=== PATIENT | female | born 1970 | race Caucasian/White ===

== ENCOUNTER 2021-01-29 09:36 | Outpatient (REF) | payer MEDICARE, SELFPAY ==
--- NOTE | ~2021-01-29 | XR_ITS ---
EXAMINATION: XR HAND WRIST, RIGHT XR HAND WRIST, LEFT CLINICAL INFORMATION: L40.50 - Arthropathic psoriasis, unspecified COMPARISON: None TECHNIQUE: Right hand and wrist are imaged in large [id number] for 3 views along with navicular view of the right wrist. There are a total of 4 views. Left hand and wrist are imaged in large [id number] for 3 views along with navicular view of the left wrist. There are a total of 4 views. FINDINGS: Right: Normal bony mineralization. No focal soft tissue swelling. No fracture, dislocation, destructive process. The ulnar variance is neutral. The pronator quadratus fat pad appears normal. There is a punctate corticated ossicle adjacent to tip ulnar styloid. The carpus shows no joint narrowing or erosive change or chondrocalcinosis. There is incidental small cyst distal navicular pole. The MCP and interphalangeal joints show no focal narrowing or erosive change. Left: Normal bony mineralization. No focal soft tissue swelling. No fracture, dislocation, destructive process. The ulnar variance is neutral. The pronator quadratus fat pad appears normal. The carpus shows no joint narrowing or erosive change or chondrocalcinosis. The MCP and interphalangeal joints show no focal narrowing or erosive change. XR/XR hand wrist RT IMPRESSION: No soft tissue swelling, joint narrowing, or erosive changes.
--- NOTE | ~2021-01-29 | XR_ITS ---
EXAMINATION: XR PELVIS CLINICAL INFORMATION: L40.50 - Arthropathic psoriasis, unspecified COMPARISON: None TECHNIQUE: AP view of the pelvis. FINDINGS: There are degenerative changes lower lumbar spine with disc narrowing and spurring at L4-L5 and likely at L5-S1. There is probable mild joint narrowing lower left SI joint. No ankylosis or erosive change. Scattered phleboliths are seen in the left and right pelvis. Bowel gas is unremarkable. There is some symmetric benign whiskering at the bilateral iliac wings. The hip joints show no narrowing or erosive change. The pubis is unremarkable. There is focal mineralization adjacent to superior aspect left hip greater trochanter and right ischial tuberosity which may be related to calcific tendinosis at both sites. XR/XR pelvis 1-2V IMPRESSION: 1. Degenerative changes lower lumbar spine. 2. Hip joints are unremarkable. 3. Probable calcific tendinosis at superior left greater trochanter and right ischial tuberosity.
--- NOTE | ~2021-01-29 | XR_ITS ---
EXAMINATION: XR HAND WRIST, RIGHT XR HAND WRIST, LEFT CLINICAL INFORMATION: L40.50 - Arthropathic psoriasis, unspecified COMPARISON: None TECHNIQUE: Right hand and wrist are imaged in large [id number] for 3 views along with navicular view of the right wrist. There are a total of 4 views. Left hand and wrist are imaged in large [id number]-dg-[id number] for 3 views along with navicular view of the left wrist. There are a total of 4 views. FINDINGS: Right: Normal bony mineralization. No focal soft tissue swelling. No fracture, dislocation, destructive process. The ulnar variance is neutral. The pronator quadratus fat pad appears normal. There is a punctate corticated ossicle adjacent to tip ulnar styloid. The carpus shows no joint narrowing or erosive change or chondrocalcinosis. There is incidental small cyst distal navicular pole. The MCP and interphalangeal joints show no focal narrowing or erosive change. Left: Normal bony mineralization. No focal soft tissue swelling. No fracture, dislocation, destructive process. The ulnar variance is neutral. The pronator quadratus fat pad appears normal. The carpus shows no joint narrowing or erosive change or chondrocalcinosis. The MCP and interphalangeal joints show no focal narrowing or erosive change. XR/XR hand wrist LT IMPRESSION: No soft tissue swelling, joint narrowing, or erosive changes.
[2021-01-29 11:39] LABS: MANUAL DIFF FLAG NO
[2021-01-29 11:55] LABS: Basophils Absolute Auto 0.1 X10*3/uL (0.0-0.2); Basophils Percent Auto 0.7 % (0-2); Eosinophils Absolute Auto 0.1 X10*3/uL (0.0-0.4); Eosinophils Percent Auto 1.5 % (0-4); Hematocrit 39.2 % (37-47); Hemoglobin 12.8 g/dl (12.0-16.0); Imm Gran Abs Auto 0.05 X10*3/uL (0.00-0.03); Imm Gran Pct Auto 0.6 % (0.0-0.4); Lymphocytes Absolute Auto 2.4 X10*3/uL (1.2-4.9); Lymphocytes Percent Auto 26.9 % (20-40); Mean Corpuscular HGB Conc 32.7 g/dl (31.0-35.0); Mean Corpuscular Hemoglobin 30.7 pg (27.0-33.0); Mean Platelet Volume 9.9 fL (9.4-12.3); Monocytes Absolute Auto 0.6 X10*3/uL (0.1-1.2); Monocytes Percent Auto 7.2 % (2-11); Neutrophils Absolute Auto 5.7 X10*3/uL (2.0-8.3); Neutrophils Percent Auto 63.1 % (45-73); Platelet Count 262 X10*3/uL (160-400); Red Blood Count 4.17 X10*6/uL (4.20-5.50); White Blood Count 8.9 X10*3/uL (4.8-10.8)
[2021-01-29 12:26] LABS: Alanine Aminotransferase 16 U/L (0-31); Alkaline Phosphatase 53 U/L (39-117); Anion Gap 13 (12-20); Aspartate Amino Transferase 18 U/L (5-31); Bilirubin Total 0.7 mg/dL (0.0-1.0); Blood Urea Nitrogen 12 mg/dL (9-16); Calcium 8.8 mg/dL (8.4-10.2); Carbon Dioxide 30 mmol/L (22-29); Chloride 104 mmol/L (96-108); Estimated Glomerular Filt Rate > 60; Glucose Random 94 mg/dL (60-115); Potassium 4.2 mmol/L (3.3-5.1); Rheumatoid Factor < 15.0 IU/mL (<15.0); Sodium 143 mmol/L (135-145); Total Protein 6.5 g/dL (6.5-8.0)
[2021-01-29 13:22] LABS: Erythrocyte Sedimentation Rate 19 MM/HR (0-20)
[2021-01-30 08:34] LABS: HBsAGNum1 0.17 S/CO (0.00-0.99); Hepatitis A Antibody IgM 0.07 Index (0-0.79); Hepatitis B Surface Antigen Negative (Negative); ~Hepatitis A Antibody IgM Nonreactive (Nonreactive)
[2021-01-30 08:59] LABS: HBS Num1 0.16 mIU/mL (0-7.99); Hepatitis B Core Antibody Nonreactive (Nonreactive); ~HepC Num1 0.07 S/CO (0.00-0.79); ~Hepatitis B Surface Antibody NONREACTIVE (Nonreactive); ~Hepatitis C Antibody Nonreactive (Nonreactive)
[2021-01-31 13:21] LABS: Cyclic Citrullinated Peptide <16 UNITS
[2021-01-31 18:11] LABS: TS Negative Control Passed; TS Panel A 0; TS Panel B 0; TS Positive Control Passed; TSpotTB Negative (SeeBelow)
== END 2021-01-29 09:37 | disposition home or self-care (01) ==
LOC: HO.LAB 09:36
PROVIDERS: PCP Internal Medicine; Visit Provider Student in an Organized Health Care Education/Training Program
DX: L40.50 Arthropathic psoriasis, unspecified (principal); Z79.899 Other long term (current) drug therapy
CPT/HCPCS: 36415; 72170; 73110; 73130; 80053; 85025; 85652; 86140; 86200; 86431; 86481; 86704; 86706; 86709; 86803; 87340

== ENCOUNTER → 2021-02-26 15:47 | Outpatient (BNVA) | payer MEDICARE, SELFPAY | PROVIDERS: PCP Internal Medicine; Visit Provider Student in an Organized Health Care Education/Training Program | DX: L40.50 Arthropathic psoriasis, unspecified (principal); M47.816 Spondylosis without myelopathy or radiculopathy, lumbar region | CPT/HCPCS: 99212 ==

== ENCOUNTER 2021-03-12 12:49 | Outpatient (REF) | payer MEDICARE, SELFPAY ==
--- NOTE | ~2021-03-12 | MM_ITS ---
EXAMINATION: MM SCREENING DIGITAL BREAST TOMOSYNTHESIS, BILATERAL CLINICAL INFORMATION: Screening. Asymptomatic. Prior outside mammography from [place] currently unavailable. Radiology department staff has requested prior outside exams to allow for comparison in an addendum report. No known family history breast cancer. The lifetime risk of breast cancer based on the Tyrer-Cuzick Model is 11%. COMPARISON: None. TECHNIQUE: Digital breast tomosynthesis is performed in both the craniocaudal and mediolateral oblique views along with computer-aided detection (CAD). Synthesized 2D images are generated from the tomosynthesis. FINDINGS: The breasts are almost entirely fatty (ACR BI-RADS breast composition Category a). There are no significant masses, abnormal calcifications, or other abnormalities. There are a few small low right axillary tail nodes on MLO view. The skin contours are smooth. MM/MM tomosynthesis screening BI IMPRESSION: No mammographic evidence of malignancy. ASSESSMENT: BI-RADS 2: Benign RECOMMENDATION: 1. Radiology department staff will attempt to retrieve prior [id number] mammography to allow for comparison in an addendum report if made available. 2. Otherwise, routine annual mammography screening. This patient's information was entered into a reminder system with a target due date for their next mammogram.
--- NOTE | ~2021-03-12 | MM_ITS ---
EXAMINATION: BONE DENSITOMETRY CLINICAL INDICATION: Postmenopausal. COMPARISON: None (current study represents initial baseline exam). TECHNIQUE: Using a [employer]apping DXA System (software version: 13.1) manufactured by [employer], dual-energy x-ray absorptiometry was performed of the lumbar spine and left hip. The images are of good technical quality. Summary results are attached. FINDINGS: AP SPINE L1-L3 (excluding L4): The data of L1-L4 has been changed to exclude the L4 vertebral body, because degenerative changes at this level may cause overestimation of lumbar spine density. BMD 1.293 g/cm2, Z-score 0.8, T-score 1.0, normal. LEFT FEMUR, NECK: BMD 0.912 g/cm2, Z-score -0.6, T-score -0.9, normal. LEFT FEMUR, TOTAL: BMD 1.144 g/cm2, Z-score 1.0, T-score 1.1, normal. IDENTIFIED RISK FACTORS: Recurrent falls, low calcium intake. Early menopause, secondary osteoporosis. Hysterectomy, bilateral oophorectomy. HISTORY OF FRACTURE: Foot. MEDICATIONS: Calcium supplements or multivitamin, vitamin D. MM/XR DEXA axial skeleton IMPRESSION: 1. DIAGNOSIS: Normal bone density based on the lowest T-score value of -0.9 in the femoral neck applying World Health Organization criteria. 2. 10-YEAR FRACTURE RISK PREDICTION, FRAX: Major osteoporotic fracture (clinical spine, forearm, hip or shoulder) 7.9%. Hip fracture 0.4%. 3. Treatment Recommendations: NOF guidelines recommend consideration for treatment in postmenopausal women and men age 50 and older presenting with the following: -A hip or vertebral (clinical or morphometric) fracture. -T-score less than or equal to -2.5 at the femoral neck or spine after appropriate evaluation to exclude secondary causes. -Low bone mass at the hip or spine and a 10-year fracture probability by FRAX of greater than or equal to 3% for hip fracture or greater than or equal to 20% for major osteoporotic fracture based on the [place] adapted WHO algorithm. 4. Other Recommendations: All treatment decisions require clinical judgment and consideration of individual patient factors, including patient preferences, comorbidities, previous drug use, risk factors not captured in the FRAX model (e.g. frailty, falls, vitamin D deficiency, increased bone turnover, interval significant decline in bone density) and possible under or overestimation of fracture risk by FRAX. FUTURE SCAN RECOMMENDATION: People with diagnosed cases of osteoporosis or at high risk for fracture should have regular bone mineral density tests. For patients eligible for Medicare, routine testing is allowed once every 2 years. The testing frequency can be increased to one year for patients who have rapidly progressing disease, those who are receiving or discontinuing medical therapy to restore bone mass, or have additional risk factors.
== END 2021-03-12 12:50 | disposition home or self-care (01) ==
LOC: HO.MAMMO 12:49
PROVIDERS: Visit Provider Internal Medicine
DX: Z13.820 Encounter for screening for osteoporosis (principal); Z78.0 Asymptomatic menopausal state; Z12.31 Encounter for screening mammogram for malignant neoplasm of breast; Z90.710 Acquired absence of both cervix and uterus; Z90.722 Acquired absence of ovaries, bilateral
CPT/HCPCS: 77063; 77067; 77080

== ENCOUNTER 2021-05-24 10:20 | Outpatient (REF) | payer MEDICARE, SELFPAY ==
[2021-05-24 11:31] LABS: MANUAL DIFF FLAG NO
[2021-05-24 11:34] LABS: Basophils Absolute Auto 0.1 X10*3/uL (0.0-0.2); Basophils Percent Auto 0.6 % (0-2); Eosinophils Absolute Auto 0.1 X10*3/uL (0.0-0.4); Eosinophils Percent Auto 1.3 % (0-4); Hematocrit 38.8 % (37-47); Hemoglobin 13.2 g/dl (12.0-16.0); Imm Gran Abs Auto 0.04 X10*3/uL (0.00-0.03); Imm Gran Pct Auto 0.4 % (0.0-0.4); Lymphocytes Absolute Auto 2.6 X10*3/uL (1.2-4.9); Lymphocytes Percent Auto 24.9 % (20-40); Mean Corpuscular Hemoglobin 30.7 pg (27.0-33.0); Mean Corpuscular Volume 90.2 fL (80-98); Mean Platelet Volume 9.6 fL (9.4-12.3); Monocytes Absolute Auto 0.6 X10*3/uL (0.1-1.2); Monocytes Percent Auto 5.4 % (2-11); Neutrophils Percent Auto 67.4 % (45-73); Platelet Count 255 X10*3/uL (160-400); Red Cell Distribution Width 12.4 % (11.0-16.0); White Blood Count 10.3 X10*3/uL (4.8-10.8)
[2021-05-24 11:51] LABS: Alanine Aminotransferase 13 U/L (0-31); Albumin Level 4.2 g/dL (3.5-5.0); Alkaline Phosphatase 46 U/L (39-117); Anion Gap 13 (12-20); Aspartate Amino Transferase 17 U/L (5-31); Bilirubin Total 0.8 mg/dL (0.0-1.0); Blood Urea Nitrogen 13 mg/dL (9-16); C Reactive Protein 0.75 mg/dL (< or = 0.50); Calcium 9.5 mg/dL (8.4-10.2); Carbon Dioxide 25 mmol/L (22-29); Chloride 101 mmol/L (96-108); Estimated Glomerular Filt Rate > 60; Glucose Random 84 mg/dL (60-115); Potassium 4.1 mmol/L (3.3-5.1); Sodium 135 mmol/L (135-145); Total Protein 6.8 g/dL (6.5-8.0)
[2021-05-24 12:30] LABS: Erythrocyte Sedimentation Rate 12 MM/HR (0-20)
== END 2021-05-24 10:21 | disposition home or self-care (01) ==
LOC: HO.HMGCLDS 10:20
PROVIDERS: PCP Internal Medicine; Visit Provider Student in an Organized Health Care Education/Training Program
DX: L40.50 Arthropathic psoriasis, unspecified (principal)
CPT/HCPCS: 36415; 80053; 85025; 85652; 86140

== ENCOUNTER 2021-11-13 10:40 | Outpatient (REF) | payer MEDICARE, SELFPAY ==
[2021-11-13 12:13] LABS: MANUAL DIFF FLAG NO
[2021-11-13 12:24] LABS: Basophils Absolute Auto 0.1 X10*3/uL (0.0-0.2); Eosinophils Absolute Auto 0.2 X10*3/uL (0.0-0.4); Eosinophils Percent Auto 2.8 % (0-4); Hematocrit 37.6 % (37.0-47.0); Hemoglobin 12.6 g/dl (12.0-16.0); Imm Gran Abs Auto 0.02 X10*3/uL (0.00-0.03); Imm Gran Pct Auto 0.3 % (0.0-0.4); Lymphocytes Absolute Auto 1.3 X10*3/uL (1.2-4.9); Lymphocytes Percent Auto 21.7 % (20-40); Mean Corpuscular HGB Conc 33.5 g/dl (31.0-35.0); Mean Corpuscular Volume 92.6 fL (80.0-98.0); Mean Platelet Volume 8.9 fL (9.4-12.3); Monocytes Absolute Auto 0.8 X10*3/uL (0.1-1.2); Monocytes Percent Auto 13.5 % (2-11); Neutrophils Absolute Auto 3.7 x10*3/uL (2.0-8.3); Neutrophils Percent Auto 60.7 % (45-73); Platelet Count 214 X10*3/uL (160-400); Red Blood Count 4.06 X10*6/uL (4.20-5.50); Red Cell Distribution Width 12.5 % (11.0-16.0); White Blood Count 6.1 X10*3/uL (4.8-10.8)
[2021-11-13 12:59] LABS: Alanine Aminotransferase 53 U/L (0-31); Albumin Level 3.9 g/dL (3.5-5.0); Alkaline Phosphatase 46 U/L (39-117); Anion Gap 13 (12-20); Aspartate Amino Transferase 43 U/L (5-31); Bilirubin Total 0.3 mg/dL (0.0-1.0); Blood Urea Nitrogen 17 mg/dL (9-16); C Reactive Protein 5.75 mg/dL (< or = 0.50); Calcium 9.2 mg/dL (8.4-10.2); Carbon Dioxide 26 mmol/L (22-29); Chloride 104 mmol/L (96-108); Estimated Glomerular Filt Rate > 60; Glucose Random 94 mg/dL (60-115); Potassium 4.6 mmol/L (3.3-5.1); Sodium 138 mmol/L (135-145); Total Protein 6.4 g/dL (6.5-8.0)
[2021-11-13 13:22] LABS: Erythrocyte Sedimentation Rate 23 MM/HR (0-20)
== END 2021-11-13 10:41 | disposition home or self-care (01) ==
LOC: HO.LAB 10:40
PROVIDERS: PCP Internal Medicine; Visit Provider Nurse Practitioner Family
DX: L40.50 Arthropathic psoriasis, unspecified (principal); M47.816 Spondylosis without myelopathy or radiculopathy, lumbar region; Z87.891 Personal history of nicotine dependence; Z91.030 Bee allergy status; Z91.013 Allergy to seafood; Z79.899 Other long term (current) drug therapy
CPT/HCPCS: 36415; 80053; 85025; 85652; 86140; 99212

== ENCOUNTER 2022-04-04 14:35 | Outpatient (REF) | payer MEDICARE, SELFPAY ==
--- NOTE | ~2022-04-04 | XR_ITS ---
EXAMINATION: BILATERAL SHOULDER AND RIGHT HIP. CLINICAL INFORMATION: Bilateral shoulder pain and hip pain COMPARISON: None TECHNIQUE: 4 views each shoulder. 2 views right hip FINDINGS: Right shoulder: There is mild reduction in the right AC and glenohumeral joint space with mild periarticular spurring. There are small enthesophytes along the lateral acromion. No acute fracture or dislocation seen. No loose bodies. No soft tissue swelling. Left shoulder: There is no visible acute fracture dislocation. There is loss of left AC joint space with moderate periarticular spurring and inferior acromial enthesophyte. The soft tissues are normal. No visible acute fracture or dislocation seen. Right hip: The hip joint space is maintained. No bony erosive changes. No loose bodies. No periarticular spurring. No acute fracture or dislocation. XR/XR hip RT min 2V IMPRESSION: Mild degenerative changes right shoulder without acute fracture or dislocation. Moderate degenerative changes left AC joint. No visible acute fracture or dislocation seen. Unremarkable right hip exam.
--- NOTE | ~2022-04-04 | XR_ITS ---
EXAMINATION: BILATERAL SHOULDER AND RIGHT HIP. CLINICAL INFORMATION: Bilateral shoulder pain and hip pain COMPARISON: None TECHNIQUE: 4 views each shoulder. 2 views right hip FINDINGS: Right shoulder: There is mild reduction in the right AC and glenohumeral joint space with mild periarticular spurring. There are small enthesophytes along the lateral acromion. No acute fracture or dislocation seen. No loose bodies. No soft tissue swelling. Left shoulder: There is no visible acute fracture dislocation. There is loss of left AC joint space with moderate periarticular spurring and inferior acromial enthesophyte. The soft tissues are normal. No visible acute fracture or dislocation seen. Right hip: The hip joint space is maintained. No bony erosive changes. No loose bodies. No periarticular spurring. No acute fracture or dislocation. XR/XR shoulder LT min 2V IMPRESSION: Mild degenerative changes right shoulder without acute fracture or dislocation. Moderate degenerative changes left AC joint. No visible acute fracture or dislocation seen. Unremarkable right hip exam.
--- NOTE | ~2022-04-04 | XR_ITS ---
EXAMINATION: BILATERAL SHOULDER AND RIGHT HIP. CLINICAL INFORMATION: Bilateral shoulder pain and hip pain COMPARISON: None TECHNIQUE: 4 views each shoulder. 2 views right hip FINDINGS: Right shoulder: There is mild reduction in the right AC and glenohumeral joint space with mild periarticular spurring. There are small enthesophytes along the lateral acromion. No acute fracture or dislocation seen. No loose bodies. No soft tissue swelling. Left shoulder: There is no visible acute fracture dislocation. There is loss of left AC joint space with moderate periarticular spurring and inferior acromial enthesophyte. The soft tissues are normal. No visible acute fracture or dislocation seen. Right hip: The hip joint space is maintained. No bony erosive changes. No loose bodies. No periarticular spurring. No acute fracture or dislocation. XR/XR shoulder RT min 2V IMPRESSION: Mild degenerative changes right shoulder without acute fracture or dislocation. Moderate degenerative changes left AC joint. No visible acute fracture or dislocation seen. Unremarkable right hip exam.
== END 2022-04-04 14:36 | disposition home or self-care (01) ==
LOC: HO.XRAY 14:35
PROVIDERS: PCP Internal Medicine; Visit Provider Nurse Practitioner Family
DX: M25.511 Pain in right shoulder (principal); M25.512 Pain in left shoulder; M25.551 Pain in right hip; M47.816 Spondylosis without myelopathy or radiculopathy, lumbar region; L40.50 Arthropathic psoriasis, unspecified
CPT/HCPCS: 73030; 73502; 99212

== ENCOUNTER → 2022-05-30 13:54 | Outpatient (BNVA) | payer MEDICARE, SELFPAY | PROVIDERS: PCP Internal Medicine; Visit Provider Physician Assistant | DX: M75.81 Other shoulder lesions, right shoulder (principal); M75.82 Other shoulder lesions, left shoulder; M19.011 Primary osteoarthritis, right shoulder; M19.012 Primary osteoarthritis, left shoulder | CPT/HCPCS: 99202; J1020 ==

== ENCOUNTER 2022-06-27 15:14 | Outpatient (REF) | payer MEDICARE, SELFPAY ==
[2022-06-27 15:35] LABS: MANUAL DIFF FLAG NO
[2022-06-27 16:30] LABS: Basophils Absolute Auto 0.1 X10*3/uL (0.0-0.2); Basophils Percent Auto 0.7 % (0-2); Eosinophils Absolute Auto 0.2 X10*3/uL (0.0-0.4); Eosinophils Percent Auto 1.5 % (0-4); Hematocrit 36.5 % (37.0-47.0); Hemoglobin 12.2 g/dl (12.0-16.0); Imm Gran Abs Auto 0.08 X10*3/uL (0.00-0.03); Imm Gran Pct Auto 0.8 % (0.0-0.4); Lymphocytes Absolute Auto 2.6 X10*3/uL (1.2-4.9); Lymphocytes Percent Auto 25.6 % (20-40); Mean Corpuscular HGB Conc 33.4 g/dl (31.0-35.0); Mean Corpuscular Volume 89.9 fL (80.0-98.0); Mean Platelet Volume 9.4 fL (9.4-12.3); Monocytes Absolute Auto 0.9 X10*3/uL (0.1-1.2); Monocytes Percent Auto 8.7 % (2-11); Neutrophils Absolute Auto 6.5 x10*3/uL (2.0-8.3); Neutrophils Percent Auto 62.7 % (45-73); Platelet Count 252 X10*3/uL (160-400); Red Blood Count 4.06 X10*6/uL (4.20-5.50); Red Cell Distribution Width 13.4 % (11.0-16.0); White Blood Count 10.3 X10*3/uL (4.8-10.8)
[2022-06-27 17:13] LABS: Erythrocyte Sedimentation Rate 13 MM/HR (0-20)
[2022-06-27 17:15] LABS: Alanine Aminotransferase 24 U/L (0-31); Aspartate Amino Transferase 22 U/L (5-31); C Reactive Protein 0.87 mg/dL (< or = 0.50); Estimated Glomerular Filt Rate > 60
== END 2022-06-27 15:15 | disposition home or self-care (01) ==
LOC: HO.LAB 15:14
PROVIDERS: PCP Internal Medicine; Visit Provider Nurse Practitioner Family
DX: L40.50 Arthropathic psoriasis, unspecified (principal); M47.816 Spondylosis without myelopathy or radiculopathy, lumbar region; M25.551 Pain in right hip; M75.81 Other shoulder lesions, right shoulder; M75.82 Other shoulder lesions, left shoulder; Z79.899 Other long term (current) drug therapy
CPT/HCPCS: 36415; 82565; 84450; 84460; 85025; 85652; 86140; 99212

== ENCOUNTER → 2022-07-30 13:27 | Outpatient (BNVA) | payer MEDICARE, SELFPAY | PROVIDERS: PCP Internal Medicine; Visit Provider Anesthesiology | DX: L40.50 Arthropathic psoriasis, unspecified (principal); M47.812 Spondylosis without myelopathy or radiculopathy, cervical region; M47.816 Spondylosis without myelopathy or radiculopathy, lumbar region; M19.011 Primary osteoarthritis, right shoulder; M19.012 Primary osteoarthritis, left shoulder; M75.81 Other shoulder lesions, right shoulder; M75.82 Other shoulder lesions, left shoulder | CPT/HCPCS: 99202 ==

== ENCOUNTER → 2022-09-10 16:24 | Outpatient (BNVA) | payer MEDICARE, SELFPAY | PROVIDERS: PCP Family Medicine; Visit Provider Anesthesiology | DX: L40.50 Arthropathic psoriasis, unspecified (principal); M47.22 Other spondylosis with radiculopathy, cervical region; M48.02 Spinal stenosis, cervical region; M47.816 Spondylosis without myelopathy or radiculopathy, lumbar region; M19.011 Primary osteoarthritis, right shoulder; M19.012 Primary osteoarthritis, left shoulder; M75.81 Other shoulder lesions, right shoulder; M75.82 Other shoulder lesions, left shoulder | CPT/HCPCS: 99212 ==

== ENCOUNTER → 2022-10-14 12:40 | Outpatient (BNVA) | payer MEDICARE, SELFPAY | PROVIDERS: PCP Family Medicine; Visit Provider Nurse Practitioner Family | DX: L40.50 Arthropathic psoriasis, unspecified (principal); M47.816 Spondylosis without myelopathy or radiculopathy, lumbar region; M75.81 Other shoulder lesions, right shoulder; M75.82 Other shoulder lesions, left shoulder; M54.12 Radiculopathy, cervical region; Z79.899 Other long term (current) drug therapy | CPT/HCPCS: 99212 ==

== ENCOUNTER → 2023-03-23 11:26 | Outpatient (BNVA) | payer MEDICARE, SELFPAY | PROVIDERS: PCP Family Medicine; Visit Provider Nurse Practitioner Family | DX: L40.50 Arthropathic psoriasis, unspecified (principal) | CPT/HCPCS: 99212 ==